=== PATIENT | female | born 1960 | race Hispanic/Latino ===

== ENCOUNTER 2018-10-30 17:12 | Emergency (ER) | payer BC, OTHER ==
[2018-10-30 17:43] VITALS: TEMP 98.2
[2018-10-30] MEDS ORDERED: Albuterol-Ipratrop 3 mg / 0.5 (3 ml) UD INH STA (18:05)
[2018-10-30] MEDS ORDERED: Naproxen 500 MG TAB PO STA (18:05)
[2018-10-30] MEDS ORDERED: Promethazine DM 6.25 mg-15 mg/5 ml Syrup PO STA (18:05)
[2018-10-30] MEDS ORDERED: Albuterol 0.083% Inhal Sol (2.5 mg/3 mL) UD INH STA (18:05)
--- NOTE | 2018-10-30 18:07 | ED PDOC ---
HPI: Influenza Time Seen by Provider: 10/30/18 17:47 Chief Complaint: Flu-like Symptoms Chief Complaint (Provider): Flu-like Symptoms History Per: Patient Exam Limitations: no limitations Onset/Duration Of Symptoms: Days (x3) Sick Contacts (Context): Individual(s) At Work Additional complaint(s):: Patient is a 58 y/o female with a past medical history of hypertension and asthma who presents to the ED for evaluation of a sore throat and cough ongoing for the past three days. Patient admits to bilateral ear pain described as pressure, body aches, and shallow breathing (patient feels as if she cannot take a deep breath). Patient denies fever, N/V/D, chest pain, recent travel, urinary symptoms, rash. Patient claims she took over the counter medication with little relief. PCP: Dr. Bob Past Medical History Reviewed: Historical Data, Nursing Documentation, Vital Signs Vital Signs: Last Vital Signs Temp 98.2 F 10/30/18 17:41 Pulse 80 10/30/18 17:41 Resp 18 10/30/18 17:41 BP 170/98 H 10/30/18 17:41 Pulse Ox 98 10/30/18 17:41 - Medical History PMH: Asthma, HTN - Surgical History Other surgeries: ACL repair on right knee - Family History Family History: States: Unknown Family Hx - Social History Current smoker - smoking cessation education provided: No Alcohol: Social Drugs: Denies - Home Medications Home Medications: Ambulatory Orders Medication Instructions Recorded Albuterol Sulfate [Albuterol 3 ml IH Q6 #1 naseem 07/04/15 Sulfate 2.5mg/3 ml 0.083%] Amoxicillin [Amoxil] 875 mg PO BID #14 tab 07/04/15 Fluticasone/Salmeterol 250/50 1 puff IH Q12 #1 puff 07/04/15 [Advair Diskus] Promethazine/Codeine 5 ml PO Q6 #1 udc 07/04/15 [Codeine/Promethazine 10 MG/5 Ml-6.25 MG/5 Ml] Amoxicillin/Clavulanate [Augmentin 1 tab PO Q12 #14 tab 11/19/15 875 MG-125 MG] Fluticasone Nasal [Flonase] 1 actuation NS BID #1 bottle 11/19/15 Promethazine HCl/Codeine 5 ml PO Q6 PRN #120 ml 11/19/15 [Promethazine HCl-Codeine Phosphate 10 mg/5 ml] Albuterol Sulfate [Ventolin Hfa] 1 puff IH Q4 PRN #1 unit 10/30/18 Fluticasone Nasal [Flonase] 1 actuation NS DAILY #1 unit 10/30/18 RX: Naproxen 500 mg PO BID PRN #20 tab 10/30/18 RX: Promethazine DM [Phenergan DM 5 ml PO Q6 PRN #150 ml 10/30/18 Syrup] - Allergies Allergies/Adverse Reactions: Allergies Allergy/AdvReac Type Severity Reaction Status Date / Time azithromycin [From Zithromax] Allergy RASH Verified 10/30/18 17:40 Sulfa (Sulfonamide Allergy RASH Verified 10/30/18 17:40 Antibiotics) erythromycin Allergy RASH Uncoded 10/30/18 17:40 Review of Systems ROS Statement: Except As Marked, All Systems Reviewed And Found Negative Constitutional: Positive for: Other (body aches). Negative for: Fever ENT: Positive for: Ear Pain (pressure), Throat Pain Respiratory: Positive for: Cough, Other (shallow breathing) Physical Exam - Reviewed Nursing Documentation Reviewed: Yes Vital Signs Reviewed: Yes - Physical Exam Comments: GENERAL APPEARANCE: Patient is awake, alert, oriented x 3, in no acute distress. SKIN: Warm, dry; (-) cyanosis. EYES: (-) conjunctival pallor, (-) scleral icterus (-) periorbital edema or tenderness ENMT: Mucous membranes moist. Airway patent, (-) stridor. TM: (-) bulging and erythema. Pharynx: (+) faint erythema, (-) exudates (+) Uvula midline. (-) sinus tenderness. Nares: patent, (-) nasal flaring. NECK: Supple, FROM (-) tenderness, (-) stiffness, (-) lymphadenopathy. CHEST AND RESPIRATORY: (-) rales, (-) rhonchi, (-) wheezes; breath sounds equal bilaterally. Respirations even and non-labored. Speaking in full sentences. HEART AND CARDIOVASCULAR: (-) irregularity ABDOMEN AND GI: Soft (-) distention (-) tenderness (-) guarding, (-) rebound EXTREMITIES: (-) deformity NEURO AND PSYCH: Mental status as above; (-) focal findings. Gait: steady. Speech: clear. (-) facial asymmetry (-) aphasia. EOMI and painless. Pupils equal and reactive. Medical Decision Making Medical Decision Making: Time: 1754 Impression: Cough, congestion, and sore throat; probable viral syndrome Plan: Chest Two Views (PA/Lat) [Rad] Albuterol 2.5 mg INH Duoneb 3 ml INH Naproxen 500 mg PO Phenergan DM 5 ml PO Throat Culture Influenza A B Rapid Strep Group A Antigen Re-evaluation 1909 Rapid Strep: negative Influenza: Negative Repeat Bp: 143/79 Repeat HR: 76 CXR: no acute disease as read by Abhishek CORDERO On re-evaluation, patient reports improvement of symptoms. On exam, patient remains AAOx3, in no acute distress. Vitals stable. Lab/Diagnostic results d/w the patient in great detail. Diagnosis of cough, congestion, throat pain, viral pharyngitis/URI d/w the patient. Based on history, exam and diagnostic results, plan will be for outpatient follow up with PMD/clinic. Patient instructed to follow-up with pmd / referral provided / the clinic in 1- 2 days without fail. Advised to take medication as prescribed. Return to the emergency room at any time for any new or worsening symptoms. Patient states she fully agrees with and understands discharge instructions. States that she agrees with the plan and disposition. Verbalized and repeated discharge instructions and plan. I have given the patient opportunity to ask any additional questions. Scribe Attestation: Documented by Jerad Howell, acting as a scribe for WILLIE Cheng. Provider Scribe Attestation: All medical record entries made by the Scribe were at my direction and personally dictated by me. I have reviewed the chart and agree that the record accurately reflects my personal performance of the history, physical exam, medical decision making, and the department course for this patient. I have also personally directed, reviewed, and agree with the discharge instructions and disposition. - ECG O2 Sat by Pulse Oximetry: 98 (RA) Pulse Ox Interpretation: Normal Disposition - Clinical Impression Clinical Impression: Viral pharyngitis, Viral URI, Cough, Nasal congestion, Throat pain in adult - Patient ED Disposition Is Patient to be Admitted: No Counseled Patient/Family Regarding: Studies Performed, Diagnosis, Need For Followup, Rx Given - Disposition Referrals: primary, doctor [Other] Disposition: Routine/Home Disposition Time: 19:10 Condition: STABLE Additional Instructions: The emergency medical care you received today was directed at your acute symptoms. If you were prescribed any medication, please fill it and take as directed. It may take several days for your symptoms to resolve. Return to the Emergency Department if your symptoms worsen, do not improve, or if you have any other problems. Please contact your doctor in 2 days for re-evaluation and follow up / or call one of the physicians/clinics you have been referred to that are listed on the Patient Visit Information form that is included in your discharge packet. Bring any paperwork you were given at discharge with you along with any medications you are taking to your follow up visit. Our treatment cannot replace ongoing medical care by a primary care provider (PCP) outside of the emergency department. Prescriptions: Albuterol Sulfate [Ventolin Hfa] 1 puff IH Q4 PRN #1 unit PRN Reason: Shortness Of Breath Fluticasone Nasal [Flonase] 1 actuation NS DAILY #1 unit RX: Naproxen 500 mg PO BID PRN #20 tab PRN Reason: Pain, Moderate (4-7) RX: Promethazine DM [Phenergan DM Syrup] 5 ml PO Q6 PRN #150 ml PRN Reason: Cough Instructions: Viral Pharyngitis, Sore Throat in Adults, Viral Upper Respiratory Infection, Adult (DC), Cough, Adult (DC), Cough, Runny Nose, and the Common Cold (DC), Shortness of Breath (Dyspnea) Forms: [employer] (Icelandic) Print Language: TELUGU - POA Present On Arrival: None Results - Lab Results Lab Results: 10/30/18 10/30/18 18:12 17:55 Influenza Typ A,B (EIA) Negative for flu a/b Grp A Beta Strep Ag Negative
[2018-10-30] MEDS ORDERED: Naproxen 500 MG TAB PO ONE (18:35)
[2018-10-30] MEDS ORDERED: Albuterol-Ipratrop 3 mg / 0.5 (3 ml) UD ONE (18:35)
[2018-10-30] MEDS ORDERED: Albuterol 0.083% Inhal Sol (2.5 mg/3 mL) UD ONE (18:38)
[2018-10-30] MEDS ORDERED: Promethazine 6.25 MG/5 ML CUP ONE (18:38)
[2018-10-30 19:17] VITALS: BP 143/79; PULSE 76; RESP 16
[2018-10-30 19:23] VITALS: O2SAT 98
--- NOTE | 2018-10-31 12:58 | RAD ---
Date of service: 10/30/2018 HISTORY: cough, SOB COMPARISON: Comparison made with chest radiograph 11/19/2015. TECHNIQUE: Chest PA and lateral FINDINGS: LUNGS: The interstitial markings are slightly increased and coarsened; rule out sequela reactive/inflammatory airway disease or viral illness. PLEURA: No significant pleural effusion identified. No pneumothorax apparent. CARDIOVASCULAR: No aortic atherosclerotic calcification present. Normal cardiac size. No pulmonary vascular congestion. OSSEOUS STRUCTURES: Minor multilevel degenerative spondylosis of the thoracic spine. VISUALIZED UPPER ABDOMEN: Normal. OTHER FINDINGS: None. IMPRESSION: The interstitial markings are slightly increased and coarsened; rule out reactive/inflammatory airway disease or viral illness.
== END 2018-10-30 20:00 | disposition home or self-care (01) ==
LOC: H.ER 17:12
DX: J02.9 Acute pharyngitis, unspecified (principal); J06.9 Acute upper respiratory infection, unspecified; R05 Cough; R09.81 Nasal congestion; I10 Essential (primary) hypertension; Z79.899 Other long term (current) drug therapy; Z88.1 Allergy status to other antibiotic agents; Z88.2 Allergy status to sulfonamides; J45.909 Unspecified asthma, uncomplicated; I25.2 Old myocardial infarction